=== PATIENT | female | born 1985 | race Caucasian/White ===

== ENCOUNTER 2023-10-21 23:05 | Emergency (ER) | payer OTHER ==
[2023-10-21 23:43] VITALS: BP 129/66; PULSE 64; RESP 18; TEMP 98.6; BMI 32.2
[2023-10-22 00:45] LABS: PH,URINE 5.5 (5.0-8.0); URINE APPEARANCE CLEAR; URINE BILIRUBIN NEGATIVE (NEGATIVE); URINE COLOR DK YELLOW; URINE GLUCOSE (UA) NEGATIVE (NEGATIVE); URINE KETONE NEGATIVE (NEGATIVE); URINE LEUK ESTERASE NEGATIVE (NEGATIVE); URINE NITRITE NEGATIVE (NEGATIVE); URINE PROTEIN NEGATIVE (NEGATIVE); URINE UROBILINOGEN 0.2 mg/dL (0.2-1.0)
[2023-10-22] MEDS ORDERED: IBUPROFEN 600 MG TABLET (FP) PO ONE ×2 (00:45→00:48)
[2023-10-22 00:48] LABS: HCG,QUALITATIVE URINE Negative
== END 2023-10-22 04:18 | disposition home or self-care (01) ==
LOC: JER 23:05
DX: R10.32 Left lower quadrant pain (principal); R30.0 Dysuria; R11.0 Nausea
CPT/HCPCS: 74176-TC; 76830-TC; 81003; 84703; 87086; 99284-25

== ENCOUNTER 2025-01-03 08:19 | Emergency (ER) | payer OTHER ==
[2025-01-03 08:30] VITALS: BP 127/69; PULSE 66; RESP 18; TEMP 98.7; BMI 26.6
[2025-01-03] MEDS ORDERED: ACETAMINOPHEN 500 MG TABLET (FP) ONE ×2 (09:10→09:11)
[2025-01-03] MEDS: ACETAMINOPHEN 500 MG TABLET (FP) PO ONE (09:13)
== END 2025-01-03 10:24 | disposition home or self-care (01) ==
LOC: JERFT 08:19
DX: S60.417A Abrasion of left little finger, initial encounter (principal); S80.211A Abrasion, right knee, initial encounter; V03.10XA Pedestrian on foot injured in collision with car, pick-up truck or van in traffic accident, initial encounter; Y92.410 Unspecified street and highway as the place of occurrence of the external cause
CPT/HCPCS: 73502-TC-LT-FY; 73562-TC-RT-FY; 99284-25